=== PATIENT | female | born 1975 | race Hispanic/Latino ===

== ENCOUNTER 2017-07-31 16:02 | Emergency (ER) | payer BC ==
[2017-07-31 16:34] VITALS: RESP 20; O2SAT 98
--- NOTE | 2017-07-31 18:42 | C.PDOC ---
History Of Present Illness Destini Collins is a 41 year old female, whose past medical history includes migraines, who presents to the emergency department complaining of developing URI symptoms two weeks ago. Patient reports she decided to come in today due to shortness of breath and burning chest pain. Patient states her PMD prescribed her Prednisone for migraine pain and she took her last dose today. She has continued to have harsh burning cough, chills, and night sweats. She also complaints of having mild nasal congestion, hoarse voice, and having sick contact with others. Patient denies headache, fever, back pain, nausea, vomiting , diarrhea, abdominal pain, lower extremity pain/swelling, recent travel, dizziness or other complaints. Time Seen by Provider: 07/31/17 18:24 Chief Complaint (Nursing): Chest Pain History Per: Patient History/Exam Limitations: no limitations Onset/Duration Of Symptoms: Days, Worse Since (today) Current Symptoms Are (Timing): Worse Quality: Burning (chest pain) Associated Symptoms: denies: Nausea Modifying Factors: None Exacerbating Factors: None Alleviating Factors: None Past Medical History Reviewed: Historical Data, Nursing Documentation, Vital Signs Vital Signs: Last Vital Signs Temp 98.5 F 07/31/17 16:33 Pulse 83 07/31/17 16:33 Resp 20 07/31/17 16:33 BP 110/69 07/31/17 16:33 Pulse Ox 98 07/31/17 18:48 - Medical History PMH: Migraine Surgical History: No Surg Hx Family History: States: No Known Family Hx - Social History Hx Alcohol Use: Yes Hx Substance Use: No - Immunization History Hx Tetanus Toxoid Vaccination: No Hx Influenza Vaccination: No Hx Pneumococcal Vaccination: No Review Of Systems Constitutional: Positive for: Chills, Sweats. Negative for: Fever ENT: Positive for: Nose Congestion, Other (voice changes) Cardiovascular: Positive for: Chest Pain (burning chest pain) Respiratory: Positive for: Cough, Shortness of Breath (today) Gastrointestinal: Negative for: Nausea, Vomiting, Abdominal Pain, Diarrhea Genitourinary: Negative for: Dysuria, Frequency Musculoskeletal: Negative for: Neck Pain Skin: Negative for: Rash Neurological: Negative for: Headache Psych: Negative for: Anxiety Physical Exam - Physical Exam Appears: Well, Non-toxic, No Acute Distress Skin: Normal Color, Warm, Dry Head: Atraumatic, Normacephalic Eye(s): bilateral: Normal Inspection, PERRL, EOMI Nose: Normal Oral Mucosa: Moist Throat: Other (hoarse voice) Neck: Normal ROM Lymphatic: Adenopathy (mild) Chest: No Tenderness Cardiovascular: Rhythm Regular, No Murmur Respiratory: Normal Breath Sounds, No Rales, No Rhonchi, No Wheezing, Other ( dry cough) Gastrointestinal/Abdominal: Normal Exam, Bowel Sounds (normal), Soft, No Tenderness, No Distention, No Guarding, No Rebound Extremity: Normal ROM Neurological/Psych: Oriented x3, Normal Speech, Normal Cognition, Normal Cranial Nerves, Normal Motor, Normal Sensation, Normal Reflexes ED Course And Treatment - Laboratory Results Result Diagrams: 07/31/17 19:30 07/31/17 19:30 Lab Interpretation: No Acute Changes O2 Sat by Pulse Oximetry: 98 (room air) Pulse Ox Interpretation: Normal - Radiology CXR: Interpreted by Me CXR Interpretation: Yes: No Acute Disease Reevaluation Time: 20:35 Reassessment Condition: Improved (Patient remains comfortable in ED. No evidence of respiratory distress.) Medical Decision Making Medical Decision Making: Impression: 41 y/o female with mild adenopathy, dry cough, and raspy hoarse voice Plan: -- EKG -- CXR -- Labs -- Urinalysis -- Reassess and disposition Progress Notes: Disposition Counseled Patient/Family Regarding: Studies Performed, Diagnosis, Need For Followup, Rx Given - Disposition Referrals: Sulma Armstrong MD [Medical Doctor] - Disposition: HOME/ ROUTINE Disposition Time: 20:36 Condition: STABLE Prescriptions: Azithromycin [Zithromax] 250 mg PO DAILY #6 tab Instructions: Acute Bronchitis (ED) Forms: [employer] (Romanian) - Clinical Impression Clinical Impression: Bronchitis - Scribe Statement The provider has reviewed the documentation as recorded by the Lilyibe Scribe Attestation: Dana Bautistaibcara Attestation: All medical record entries made by the Scribe were at my direction and personally dictated by me. I have reviewed the chart and agree that the record accurately reflects my personal performance of the history, physical exam, medical decision making, and the department course for this patient. I have also personally directed, reviewed, and agree with the discharge instructions and disposition.
[2017-07-31 19:52] LABS: BASO # 0.1 K/uL (0.0-0.2); BASO % 0.4 % (0.0-2.0); EOS # 0.4 K/uL (0.0-0.7); EOS % 2.6 % (0.0-4.0); HEMOGLOBIN 13.9 g/dL (11.0-16.0); LYMPH # 3.4 K/uL (1.0-4.3); LYMPH % 21.1 % (20.0-40.0); MEAN CELL VOLUME 89.5 fL (81.0-99.0); MEAN CORPUSCULAR HEMOGLOBIN 30.6 pg (27.0-31.0); MEAN CORPUSCULAR HGB CONC 34.1 g/dL (33.0-37.0); MEAN PLATELET VOLUME 8.4 fL (7.2-11.7); MONO # 1.3 K/uL (0.0-0.8); MONO % 8.4 % (0.0-10.0); NEUT # 10.7 K/uL (1.8-7.0); NEUT % 67.5 % (50.0-75.0); NRBC % 0.2 % (0.0-2.0); RBC 4.54 Mil/uL (3.80-5.20); RED CELL DISTRIBUTION WIDTH 12.5 % (11.5-14.5); WHITE BLOOD COUNT 15.9 K/uL (4.8-10.8)
[2017-07-31 19:55] LABS: ALB/GLOB RATIO 1.1 (1.0-2.1); ALBUMIN 3.9 g/dL (3.5-5.0); ALT/SGPT 30 U/L (9-52); AST/SGOT 22 U/L (14-36); BLOOD UREA NITROGEN 9 mg/dL (7-17); CALCIUM 8.7 mg/dl (8.6-10.4); GFR AFRICAN-AMERICAN > 60; GFR NON-AFRICAN AMERICAN > 60
[2017-07-31 20:44] VITALS: BP 120/71; PULSE 81; TEMP 98
--- NOTE | 2017-08-01 08:56 | RAD ---
Chest x-ray two views History: Cough. Comparison: None available. Findings: No focal infiltrate or effusion. Heart size within normal limits. Impression: No focal infiltrate or effusion.
--- NOTE | 2017-08-01 21:06 | CARD ---
APPROVED REPORT EKG Measurement Heart [id number] <Conclusion> Normal sinus rhythm Normal ECG
== END 2017-07-31 20:44 | disposition home or self-care (01) ==
LOC: C.ER 16:02
DX: J40 Bronchitis, not specified as acute or chronic (principal)